=== PATIENT | female | born 1980 | race Caucasian/White ===

== ENCOUNTER 2021-09-01 14:58 | Outpatient (REF) | payer OTHER, SELFPAY ==
--- NOTE | ~2021-09-01 | MR_ITS ---
EXAMINATION: MR BRAIN WITHOUT CONTRAST CLINICAL INFORMATION: 40-year-old with complaints of pain at the back of the head, numbness and tingling right side of face. Reason for exam states Arnold-Chiari malformation. COMPARISON: None TECHNIQUE: Multiplanar multisequence MR imaging of the brain was done. FINDINGS: Brain Volume: Within normal limits. Structural: The cerebellar tonsils project slightly below the plane of the foramen magnum by approximately 2.5 mm, which is consistent with benign cerebellar tonsillar ectopia, which is an anatomic variant. No cervicomedullary kinking or tonsillar pegging is identified to suggest a Chiari I malformation. Brain and Meninges: DWI sequence demonstrates no restricted diffusion. Specifically, there is no evidence for acute or subacute cerebral ischemia. The brain is normal in morphology. There are a few subtle punctate, subcortical FLAIR signal hyperintensities in the left parietal and posterior temporal lobes. Otherwise the brain is normal in signal intensity. No evidence for hemorrhage, hemosiderin staining or abnormal mineral deposition. No extra-axial fluid collections, space-occupying process or mass effect is identified. Ventricles and Subarachnoid Spaces: The ventricular system and subarachnoid spaces are within normal limits without hydrocephalus. Orbital Structures: The visualized orbital structures are grossly unremarkable in appearance within the limitations of the study. Vascular: Signal voids are noted in the visualized major intracranial vessels. Sinuses and Osseous Structures: There is mild nasal septal deviation to the left. Osseous marrow signal intensity appears grossly unremarkable. MR/MR head/brain wo con IMPRESSION: 1. No acute intracranial process and no evidence for Chiari I malformation. There is 2.5 mm of benign cerebellar tonsillar ectopia. 2. A few punctate subcortical white matter T2 hyperintensities in the left parietal and posterior temporal lobes which are nonspecific findings of indeterminate significance.
--- NOTE | ~2021-09-01 | MR_ITS ---
EXAMINATION: MR CERVICAL SPINE WITHOUT CONTRAST CLINICAL INFORMATION: 40-year-old with cervical disc herniation. Arnold-Chiari malformation. COMPARISON: None TECHNIQUE: MRI of the cervical spine was obtained using routine sequences without contrast. FINDINGS: Alignment: Normal. Craniocervical Junction/C1-C2 Articulations: Occipitoatlantal joints are intact and aligned. There is mild retrolisthesis at the left C1-C2 facet joint with slight anterolisthesis of the right C1-C2 facet joint, likely reflecting a mild degree of head rotation during the scan. Visualized Intracranial Structures: Mild cerebellar tonsillar ectopia at the foramen magnum is noted consistent with an anatomic variant. No evidence for Chiari I malformation. Vertebral Bodies: Normal height. Disc Spaces and Endplates: Minor anterior marginal endplate spurring at C5-C6 and C6-C7. Bone Marrow: No significant marrow-replacing process or bone marrow edema. C2-C3: No disc herniation, DJD, canal or neuroforaminal stenosis. C3-C4: Minimal central disc protrusion with minimal indentation of the ventral thecal sac. Mild uncinate process spurring on the right. Mild right-sided facet arthrosis also noted. There is mild foraminal narrowing on the right without significant canal stenosis. C4-C5: Mild right paramedian posterior disc osteophyte complex with mild flattening of the dural sac on the right without cord impingement or significant spinal canal stenosis. There is uncovertebral spurring predominately on the right and minor facet spurring with mild foraminal narrowing on the right. C5-C6: Central to left paramedian disc herniation noted, with moderate flattening of the dural sac asymmetric to the left without cord impingement. No significant facet arthrosis, uncovertebral arthrosis or neuroforaminal stenosis. There is borderline to mild central canal narrowing asymmetric to the left. C6-C7: Broad-based central to right paramedian disc herniation, with mild flattening of the dural sac without cord impingement. No significant DJD, canal or neuroforaminal stenosis. C7-T1: No disc herniation. Mild bilateral facet arthropathy noted. No significant canal or neuroforaminal stenosis. The cervical and visualized upper thoracic spinal cord is normal in morphology, caliber and signal intensity. MR/MR cervical spine wo con IMPRESSION: 1. Relatively central disc herniations at C5-C6 and C6-C7 without spinal cord impingement, with mild central canal narrowing asymmetric to the left at C5-C6. 2. Small right paramedian disc osteophyte complex at C4-C5 and minimal central disc protrusion at C3-C4. 3. Multilevel uncovertebral and facet arthropathy, with mild degrees of neuroforaminal narrowing on the right at C3-C4 and C4-C5.
== END 2021-09-01 14:59 | disposition home or self-care (01) ==
LOC: HO.MRI 14:58
PROVIDERS: PCP Nurse Practitioner Family; Visit Provider Psychiatry & Neurology Neurology
DX: M50.20 Other cervical disc displacement, unspecified cervical region (principal); Q07.00 Arnold-Chiari syndrome without spina bifida or hydrocephalus
CPT/HCPCS: 70551; 72141